=== PATIENT | female | born 1960 | race Caucasian/White ===

== ENCOUNTER 2025-04-30 15:23 | Emergency (ER) | payer MEDICARE, MEDICAID ==
[~2025-04-30] VITALS: Ht 172.7 cm; Wt 121.8 kg
[2025-04-30 15:30] VITALS: TEMP 97.6
--- NOTE | 2025-04-30 15:33 | ELECTROCARDIOGRAPH REPORT ---
[facility] Test Date: 2025-04-30 Test Time: 15:32:07 Pat Name: RUBENS KONG Department: [facility] Patient ID: [facility]-[id number] Room: Gender: M [employer] Room Attendant: : 1960 Requested By: ARIAN COVARRUBIAS Order Number: [id number] Reading MD: Measurements Intervals [place] Rate: 113 P: 0 TX: 0 QRS: 61 QRSD: 103 T: 52 QT: 389 QTc: 534 Interpretive Statements Junctional tachycardia Low voltage, extremity leads Prolonged QT interval Please click the below link to view image of tracing.
[2025-04-30 15:53] LABS: MEAN PLATELET VOLUME 8.0 FL (7.4-10.4); RED CELL DISTRIBUTION WIDTH 15.3 % (11.5-14.5)
[2025-04-30 16:14] LABS: CREATININE 1.30 MG/DL (0.40-0.90); PRO BRAIN NATRIURETIC PEPTIDE 464 PG/ML (0-125); TOTAL CARBON DIOXIDE 23.7 MMOL/L (24-32); eCRCL 44 ML/MIN; eGFR 41 ML/MIN
--- NOTE | 2025-04-30 16:30 | RADIOLOGY REPORT ---
CHEST RADIOGRAPH Indication: CP Technique: Single frontal view of the chest was obtained COMPARISON: None FINDINGS: Lines and Tubes: None Lungs: Clear Pleura: No effusion. No pneumothorax. Cardiomediastinal contours: Unremarkable Bones: Unremarkable IMPRESSION: No acute disease.
[2025-04-30 16:43] LABS: LEUKOCYTE ESTERASE ,URINE NEGATIVE (Neg); NITRITES, URINE NEGATIVE (Neg); OCCULT BLOOD,URINE SMALL (Neg)
--- NOTE | 2025-04-30 16:45 | Physician Documentation ---
History of Present Illness ~ Chief Complaint: Rapid Heartbeat Stated Complaint: ELEVATED HEART RATE Time Seen by MD: 16:15 HPI 65-year-old female presenting via EMS from her primary care clinic. Patient reportedly went there because she was having some urinary symptoms and when they took her vitals they could not get a good blood pressure. They then saw that she had a possible were 200. EKG showed that she was in SVT. EMS was called who arrived. Patient was given adenosine and by the time to arrival at the ED this had resolved. Currently she states that she feels fine. She denies any chest pain or shortness of breath. Does state that she has had some urinary symptoms for the past several days. Medication Reconciliation Allergies: Coded Allergies: cephalexin (Unverified Allergy, Unknown, 04/30/25) codeine (Unverified Allergy, Unknown, 04/30/25) Scheduled Nitrofurantoin Macrocrystal (Nitrofurantoin), 1 CAP PO Q12H Past Medical History Past Medical History: No Pertinent History Review of Systems All Other Systems at this time: Reviewed and Negative Physical Exam Vital Signs: Temperature: 97.6, Heart Rate: 115, Respiratory Rate: 18, BP: 136/109, Pulse Oximetry: 94, Weight: 121.820 Oxygen Flow Rate: 0 Physical Exam I have reviewed the triage vitals. CONST: Well developed and well nourished. In no acute distress HENT: Head Atraumatic EYES: Pupils are equal, round and reactive to light. Normal conjunctiva NECK: Normal range of motion. Supple. CARDIO: Normal rate and regular rhythm. No murmurs, rubs, or gallops. S1, S2. PULM/CHEST: No respiratory distress. Lungs clear to auscultation. No wheeze ABD: Soft and nontender. Nondistended. Bowel sounds normal. No guarding. : Exam deferred MSK: No edema. No deformity. NEURO: Alert and oriented to person, place and time. Moving all extremities SKIN: Warm and dry. PSYCH: Normal mood and affect. Good eye contact. Progress Progress Note The patient was offered admission to the hospital but she declined. Results/Orders Results/Orders Orders - ARIAN COVARRUBIAS MD Chest,Single View (04/30/25 15:30) Monitor (04/30/25 15:30) Saline Lock (04/30/25 15:30) Oxygen (04/30/25 15:30) Hs Troponin I W Calculations (04/30/25 18:30) Cult Urine + [address] (04/30/25 16:56) Completed Orders - ARIAN COVARRUBIAS MD Chest,Single View (04/30/25 15:30) Cbc/Diff (04/30/25 15:30) BMP (04/30/25 15:30) PBNP (04/30/25 15:30) Electrocardiogram (04/30/25 15:30) Hs Troponin I W Calculations (04/30/25 15:30) Hs Troponin I W Calculations (04/30/25 17:30) Ua W/Microscopic, Cult If Ind (04/30/25 16:17) Normal Saline 1000ml (0.9% Sodium Chlori (04/30/25 16:50) Ciprofloxacin Tablet (Cipro Tablet) (04/30/25 18:00) Nitrofurantoin Macrocryst Cap (Macrodant (04/30/25 18:00) Medications Received in ER Medications (Trade) Dose Ordered Sig/Ignacio Route PRN Reason Start Time Stop Time Status Last Admin Dose Admin Sodium Chloride 1,000 ml @ 1,000 mls/hr ONCE ONCE IV 04/30/25 16:50 04/30/25 17:49 DC 04/30/25 16:55 1,000 MLS/HR (MacroDANTIN capsule) 100 mg ONCE ONCE PO 04/30/25 18:00 04/30/25 18:14 DC 04/30/25 18:24 100 MG Vital Signs 04/30/25 04/30/25 04/30/25 04/30/25 15:30 15:39 16:28 17:56 Temp 97.6 Pulse 113 115 93 Resp 16 16 18 17 B/P (MAP) 132/73 136/109 (118) 110/57 (74) Pulse Ox 94 98 O2 Flow Rate 0 0 Laboratory Tests Test 04/30/25 15:28 04/30/25 16:17 04/30/25 17:10 White Blood Count 8.8 Red Blood Count 4.66 Hemoglobin 14.3 Hematocrit 42.5 Mean Corpuscular Volume 91.2 Mean Corpuscular Hemoglobin 30.6 Mean Corpuscular Hemoglobin Concent 33.6 Red Cell Distribution Width 15.3 H Platelet Count 167 Mean Platelet Volume 8.0 Neutrophils (%) (Auto) 76.2 H Lymphocytes (%) (Auto) 12.9 L Monocytes (%) (Auto) 10.3 Eosinophils (%) (Auto) 0.3 Basophils (%) (Auto) 0.3 Neutrophils # (Auto) 6.7 Lymphocytes # (Auto) 1.1 Monocytes # (Auto) 0.9 Eosinophils # (Auto) 0.0 Basophils # (Auto) 0.0 CBC Comment Sodium Level 137 Potassium Level 3.4 L Chloride Level 101 Carbon Dioxide Level 23.7 L Anion Gap 12 Blood Urea Nitrogen 20 H Creatinine 1.30 H Estimated GFR/1.73 m2 41 BUN/Creatinine Ratio 15.4 Glucose Level 242 H Calcium Level 8.4 L Troponin I High Sensitivity 78 *H 113 *H Pro-B-Type Natriuretic Peptide 464 H Albumin 3.1 L Chemistry Comments Urine Specimen Description Non-specified Urine Color Yellow Urine Clarity Clear Urine pH 6.0 Urine Specific Murphy 1.025 Urine Protein 30 H Urine Glucose (UA) 250 H Urine Ketones Trace H Urine Occult Blood Small Urine Nitrite Negative Urine Bilirubin Negative Urine Urobilinogen 0.2 Urine Leukocyte Esterase Negative Urine RBC 3-10 Urine WBC 5-10 H Urine Squamous Epithelial Cells Few Urine Transitional Epithelial Cells Few Urine Bacteria 1+ Urine Hyaline Casts 10-30 Urine Mucus None seen Urine Culture Indicated Indicated Volume Urine Centrifuged 10 ml Urine Comment Troponin I High Sens Percent Delta 44 Troponin I Hi Sens Absolute Change 35 Microbiology Date/Time Source Procedure Growth Status 04/30/25 16:56 Urine Nonspecified Urine Culture - Preliminary Culture received. Resulted EKG/XRAY/CT/US/VASC/MRI EKG : Additional Comment EKG as interpreted by ED MD indicating sinus tachycardia with a rate of 113 beats per minute, normal axis, no ischemia Chest X-Ray : Additional Comments CHEST RADIOGRAPH Indication: CP Technique: Single frontal view of the chest was obtained COMPARISON: None FINDINGS: Lines and Tubes: None Lungs: Clear Pleura: No effusion. No pneumothorax. Cardiomediastinal contours: Unremarkable Bones: Unremarkable IMPRESSION: No acute disease. Medical Decision Making Additional Information 65-year-old female presenting in his she for supraventricular tachycardia. Her SVT actually that resolved by the time she arrived in the ED. She was monitored in the ED for several hours and did not have any recurrence of this. We did do a lab workup which showed some mildly elevated troponins of 78 and then 113. Although this is slightly increasing this is residual from her episode of SVT. Her BNP was also minimally elevated which would be consistent with this. Patient's EKG was unremarkable and she was monitored that eat in the ED for several hours as mentioned without any recurrence of the SVT nor any other type of arrhythmia. Furthermore she did not exhibit any chest pain or shortness of breath. On reassessment at the time of discharge the patient's vitals were normal and she was asymptomatic. I informed the patient about the elevating troponin levels and explained to her why this is. She expressed full understanding. I offered the patient admission to hospital for further observ ation but she declined. I advised her that if she goes home and develops any type of shortness of breath or chest pain or palpitations she needs to call EMS and come directly back to the emergency department. Her initial issue has been some burning on urination and a urinary tract infection was discovered on her urinalysis. I medicated her with one dose of Macrobid in the ED. I will prescribe her a seven day course and advised her to take this and also drink plenty of fluids. Advised to monitor for any recurrence of these palpitations and return promptly to the ED should they occur again. Otherwise advised to take the medication as prescribed and follow up with the primary care physician as needed. Return to the ED with any acutely worsening symptoms. Departure Disposition: HOME / SELF CARE / HOMELESS Impression: Primary Impression: UTI (urinary tract infection) Additional Impression: SVT (supraventricular tachycardia) Condition: Improved Referrals: NO PRIMARY CARE PROVIDER (PCP) Prescriptions Nitrofurantoin Macrocrystal (Nitrofurantoin) 100 Mg Capsule 1 CAP PO Q12H for 7 Days, #14 CAP 0 Refills Prov: ARIAN COVARRUBIAS MD 04/30/25 Signature Scribe Signature: 1 Attestation: 1 ARIAN COVARRUBIAS MD Apr 30, 2025 16:45
[2025-04-30 16:48] LABS: UA COLLECTION TYPE NON-SPECIFIED
[2025-04-30] MEDS: normal saline 1000ml 1,000 ML IV ONE (16:55)
[2025-04-30 16:56] LABS: MUCUS STRANDS NONE SEEN /LPF (Neg); SQUAMOUS EPITHELIAL CELL,UR FEW /LPF (FEW)
[2025-04-30 17:56] VITALS: BP 110/57; PULSE 93; RESP 17; O2SAT 98
[2025-04-30] MEDS ORDERED: ciprofloxacin 250mg tablet PO ONE (18:00)
[2025-04-30] MEDS ORDERED: NITR100C PO (18:06)
== END 2025-04-30 18:29 | disposition home or self-care (01) ==
LOC: EDSEX 15:24 → ER 15:24
DX: N39.0 Urinary tract infection, site not specified (principal); I47.10 Supraventricular tachycardia, unspecified; R06.02 Shortness of breath; Z88.1 Allergy status to other antibiotic agents; Z88.5 Allergy status to narcotic agent
CPT/HCPCS: 36415; 71045; 80048; 81001; 83880; 84484; 85025; 87088; 93005; 96360; 99285; J7030